=== PATIENT | male | born 1965 | race Caucasian/White ===

== ENCOUNTER → 2016-11-02 | Outpatient (CLI) | payer OTHER ==
--- NOTE | 2016-11-02 16:43 | RADIOLOGY REPORT (SQ) ---
EXAM DESCRIPTION: CHEST PA/LATERAL COMPLETED DATE/TIME: 11/02/2016 4:19 pm REASON FOR STUDY: COUGH COMPARISON: 2012 TECHNIQUE: Frontal and lateral radiographic views of the chest acquired. NUMBER OF VIEWS: Two view. LIMITATIONS: None. FINDINGS: LUNGS AND PLEURA: No opacities, masses or pneumothorax. No pleural effusion. MEDIASTINUM AND HILAR STRUCTURES: No masses or contour abnormalities. HEART AND VASCULAR STRUCTURES: Heart normal size. No evidence for failure. BONES: No acute findings. HARDWARE: None in the chest. OTHER: No other significant finding. IMPRESSION: NO SIGNIFICANT RADIOGRAPHIC FINDING IN THE CHEST. TECHNICAL DOCUMENTATION: JOB ID: [id number] [employer]- All Rights Reserved
--- NOTE | 2016-11-02 16:48 | RADIOLOGY REPORT (SQ) ---
EXAM DESCRIPTION: PARANASAL SINUSES COMPLETED DATE/TIME: 11/02/2016 4:20 pm REASON FOR STUDY: COUGH R05 COUGH COMPARISON: None. NUMBER OF VIEWS: Three views TECHNIQUE: Images of the paranasal sinuses acquired. LIMITATIONS: None. FINDINGS: ORBITS: No fracture. No foreign body. SINUSES: Mild mucosal thickening left maxillary antrum in likely through the left ethmoid sinuses. N o fluid levels. FACIAL BONES: No fracture. OTHER: No other significant finding. IMPRESSION: Changes sinusitis with slight mucosal thickening left maxillary antrum and likely left e thmoid region. TECHNICAL DOCUMENTATION: JOB ID: [id number] [employer]- All Rights Reserved
== END ==
LOC: OD 15:46
PROVIDERS: ATTEND Internal Medicine
DX: R05 Cough (principal)
CPT/HCPCS: 70220; 71020

== ENCOUNTER 2016-12-10 19:34 | Emergency (ER) | payer OTHER ==
--- NOTE | 2016-12-10 22:01 | ER Document Report ---
HPI - HPI Pain Level: 4 - CARDIOVASCULAR Cardiovascular: DENIES: Chest pain - REPRODUCTIVE Reproductive: DENIES: : - DERM Skin Color: Normal, [place] Past Medical History - Social History Smoking Status: Never Smoker Chew tobacco use (# tins/day): No Frequency of alcohol use: Rare Drug Abuse: None Pulmonary Medical History: Denies: Hx Tuberculosis Renal/ Medical History: Denies: Hx Peritoneal Dialysis Past Surgical History: Reports: Hx Abdominal Surgery - hernia repairx5, Hx Herniorrhaphy - umbilical 2003,2005. Denies: Hx Pacemaker - Immunizations Hx Diphtheria, Pertussis, Tetanus Vaccination: Yes Vertical Provider Document - INFECTION CONTROL TRAVEL OUTSIDE OF THE [place] IN LAST 30 DAYS: No - RESPIRATORY O2 Sat by Pulse Oximetry: 95 Course - Vital Signs Vital signs: Temp Pulse Resp BP Pulse Ox 98.7 F 93 16 157/88 H 95 12/10/16 19:57 12/10/16 19:57 12/10/16 19:57 12/10/16 19:57 12/10/16 19:57 Discharge - Discharge Referrals: JOE CASTILLO MD [Primary Care Provider] - Follow up as needed
[2016-12-10] MEDS ORDERED: ASPIRIN 81 MG TABLET, CHEWABLE PO ONE (22:44)
--- NOTE | 2016-12-10 22:44 | ER Document Report ---
ED General - General Chief Complaint: Jaw Pain Stated Complaint: JAW PAIN Time Seen by Provider: 12/10/16 22:00 Mode of Arrival: Ambulatory Information source: Patient Notes: 51-year-old hyperlipidemic non-smoking hypertensive male complaining of constant left lower jaw pain for [address] Castillo on Tuesday who thought that maybe it was his teeth but he saw the dentist yesterday and his teeth are normal. The pain gets really bad to 4/5 about 10 times a day lasting from 5-20 minutes. If he is driving it causes him to pull off onto the side of the road and it has been waking him up at night. When the pain is severe he becomes dizzy and lightheaded at the same time. No fever or chills. No chest pain or shortness of breath. No abdominal pain. No nausea vomiting or diarrhea. No aggravating or alleviating factors that he can discern. He was sent to [place] [id number] for chest pain and it was determined that he did not have an NM. Recent tx for sinusitis (battling for 2 months). FH: TRAVEL OUTSIDE OF THE [place] IN LAST 30 DAYS: No - Related Data Allergies/Adverse Reactions: No Known Allergies Allergy (Verified 12/10/16 19:57) Past Medical History - Social History Smoking Status: Never Smoker Chew tobacco use (# tins/day): No Frequency of alcohol use: Rare Drug Abuse: None Lives with: Family Family History: Reviewed & Not Pertinent - Medical History Medical History: Negative Renal/ Medical History: Denies: Hx Peritoneal Dialysis Past Surgical History: Reports: Hx Abdominal Surgery - hernia repairx5, Hx Herniorrhaphy - umbilical 2004,2006. Denies: Hx Pacemaker - Immunizations Hx Diphtheria, Pertussis, Tetanus Vaccination: Yes Review of Systems - Review of Systems Constitutional: No symptoms reported EENT: No symptoms reported Cardiovascular: No symptoms reported Respiratory: No symptoms reported Gastrointestinal: No symptoms reported Genitourinary: No symptoms reported Male Genitourinary: No symptoms reported Musculoskeletal: See HPI Skin: No symptoms reported Hematologic/Lymphatic: No symptoms reported Neurological/Psychological: See HPI Physical Exam - Vital signs Vitals: Temp Pulse Resp BP Pulse Ox 98.7 F 93 16 157/88 H 95 12/10/16 19:57 12/10/16 19:57 12/10/16 19:57 12/10/16 19:57 12/10/16 19:57 Interpretation: Normal - General General appearance: Appears well, Alert - HEENT Head: Normocephalic, Atraumatic Eyes: Normal Conjunctiva: Normal Pupils: PERRL External canal: Normal Tympanic membrane: Normal Mucous membranes: Normal Pharynx: Normal Notes: non tender face, jaw TMJ, ear. no swellin to tissue or parotid. no adenopahty - Respiratory Respiratory status: No respiratory distress Chest status: Nontender Breath sounds: Normal Chest palpation: Normal - Cardiovascular Rhythm: Regular Heart sounds: Normal auscultation Murmur: No - Abdominal Inspection: Normal Distension: No distension Bowel sounds: Normal Tenderness: Nontender Organomegaly: No organomegaly - Back Back: Normal, Nontender - Extremities General upper extremity: Normal inspection, Nontender, Normal color, Normal ROM , Normal temperature General lower extremity: Normal inspection, Nontender, Normal color, Normal ROM , Normal temperature, Normal weight bearing. No: Sagar's sign - Neurological Neuro grossly intact: Yes Cognition: Normal Orientation: AAOx4 Stebbins Coma Scale Eye Opening: Spontaneous Masoud Coma Scale Verbal: Oriented Masoud Coma Scale Motor: Obeys Commands Masoud Coma Scale Total: 15 Speech: Normal Motor strength normal: LUE, RUE, LLE, RLE Sensory: Normal - Psychological Associated symptoms: Normal affect, Normal mood - Skin Skin Temperature: Warm Skin Moisture: Dry Skin Color: Normal Skin irregularity: negative: Rash Course - Re-evaluation Re-evalutation: 12/11/16 00:[address] degroot- pt can be discharge home because labs negative, tx for trigeminal neuralgia, neurontin 300mg tid f/u dr. glass. 2nd troponin not needed. Heartscore 2.EKG NSR, chest xray negative. 12/11/16 00:46 - Vital Signs Vital signs: Temp Pulse Resp BP Pulse Ox 98.7 F 93 20 136/89 H 99 12/10/16 19:57 12/10/16 19:57 12/11/16 01:01 12/11/16 01:01 12/11/16 01:01 - Laboratory Result Diagrams: 12/10/16 22:53 12/10/16 22:53 Laboratory results interpreted by me: 12/10/16 12/10/16 22:53 22:53 WBC 11.4 H RDW 14.7 H Sodium 135.4 L Chloride 95 L Discharge - Discharge Clinical Impression: left jaw pain, Neuralgia Condition: Good Disposition: HOME, SELF-CARE Instructions: ENT, Trigeminal Neuralgia ([facility], [facility]) Additional Instructions: see ears nose and throat doctor for this problem see dr. castillo for follow up to er if new symptoms the neurontin may help this nerve pain copy of all labs, ekg and chest xray Please complete the patient satisfaction survey if you get one, and return it.. If you do not receive a survey, then you can go to the [facility] website, [email or web address] and place your comments about your very good care. Thank you very much. It was a pleasure being your medical provider today. Prescriptions: Gabapentin [Neurontin 300 mg Capsule] 300 mg PO Q8 #30 cap Referrals: JOE CASTILLO MD [Primary Care Provider] - Follow up as needed
[2016-12-10] MEDS ORDERED: ASPIRIN 81 MG TABLET, CHEWABLE ONE (22:49)
[2016-12-10 23:06] LABS: ABSOLUTE EOSINOPHILS # (AUTO) 0.2 10^3/uL (0.0-0.6); ABSOLUTE LYMPHOCYTES (AUTO) 1.8 10^3/uL (0.5-4.7); ABSOLUTE MONOCYTES (AUTO) 1.2 10^3/uL (0.1-1.4); ABSOLUTE NEUT (AUTO) 8.2 10^3/uL (1.7-8.2); BASOPHILS % (AUTO) 0.4 % (0-2); EOSINOPHILS % (AUTO) 1.9 % (0-6); HEMOGLOBIN 14.8 g/dL (13.5-17.0); HGB HCT DIFFERENCE 2.4; LYMPHOCYTES % (AUTO) 15.5 % (13-45); MEAN CORPUSCULAR HEMOGLOBIN 30.6 pg (27.0-33.4); MEAN CORPUSCULAR HGB CONC 35.3 g/dL (32.0-36.0); MEAN CORPUSCULAR VOLUME 87 fl (80-97); MONOCYTES % (AUTO) 10.6 % (3-13); RED BLOOD COUNT 4.84 10^6/uL (4.35-5.55); RED CELL DISTRIBUTION WIDTH 14.7 % (11.5-14.0); SEGMENTED NEUTROPHILS % (AUTO) 71.6 % (42-78); WHITE BLOOD COUNT 11.4 10^3/uL (4.0-10.5)
[2016-12-10 23:21] LABS: ALANINE AMINOTRANSFERASE 34 U/L (21-72); ALBUMIN 3.9 g/dL (3.5-5.0); ALKALINE PHOSPHATASE 69 U/L (38-126); ANION GAP 10 (5-19); ASPARTATE AMINO TRANSFERASE 25 U/L (17-59); BILIRUBIN,DIRECT 0.4 mg/dL (0.0-0.4); BLOOD UREA NITROGEN 19 mg/dL (7-20); CALCIUM 9.2 mg/dL (8.4-10.2); CARBON DIOXIDE 30 mmol/L (22-30); CHLORIDE 95 mmol/L (98-107); CREATINE KINASE 67 U/L (55-170); CREATININE RESULT 0.91 mg/dL (0.52-1.25); GLUCOSE 106 mg/dL (75-110); POTASSIUM 4.3 mmol/L (3.6-5.0); SODIUM 135.4 mmol/L (137-145); TOTAL PROTEIN 6.5 g/dL (6.3-8.2)
--- NOTE | 2016-12-10 23:27 | RADIOLOGY REPORT (SQ) ---
EXAM DESCRIPTION: CHEST SINGLE VIEW COMPLETED DATE/TIME: 12/10/2016 11:12 pm REASON FOR STUDY: jaw pain COMPARISON: 04/09/2012. EXAM PARAMETERS: NUMBER OF VIEWS: One view. TECHNIQUE: Single frontal radiographic view of the chest acquired. RADIATION DOSE: NA LIMITATIONS: None. FINDINGS: LUNGS AND PLEURA: No opacities, masses or pneumothorax. No pleural effusion. MEDIASTINUM AND HILAR STRUCTURES: No masses. Contour normal. HEART AND VASCULAR STRUCTURES: Heart normal in size. Normal vasculature. BONES: No acute findings. Degenerative changes in the spine. HARDWARE: None in the chest. OTHER: No other significant finding. IMPRESSION: NO ACUTE RADIOGRAPHIC FINDING IN THE CHEST. TECHNICAL DOCUMENTATION: JOB ID: [id number]
[2016-12-10 23:34] LABS: CREATINE KINASE MB 1.56 ng/mL (<4.55)
[2016-12-10 23:35] LABS: TROPONIN I < 0.012 ng/mL
[2016-12-11 01:06] VITALS: BP 136/89
--- NOTE | 2016-12-11 11:49 | EKG REPORT ---
SEVERITY:- BORDERLINE ECG - SINUS RHYTHM BORDERLINE INFERIOR Q WAVES : Confirmed by: Joselito Canela 11-Dec-2016 11:49:15
== END 2016-12-11 01:12 | disposition home or self-care (01) ==
LOC: ER 19:34
DX: M79.2 Neuralgia and neuritis, unspecified (principal); R68.84 Jaw pain; R42 Dizziness and giddiness
CPT/HCPCS: 36415; 71010; 80053; 82550; 82553; 84484; 85025; 93005; 93010; 99284